=== PATIENT | male | born 1970 | race Caucasian/White ===

== ENCOUNTER 2016-12-21 11:38 | Emergency (ER) | payer SELFPAY ==
[~2016-12-21] VITALS: Ht 185.4 cm; Wt 101.2 kg
[~2016-12-21 11:38] MED LIST: DAYPRO600 M1 PO; LISINOPRIL5 MG PO; PRILOSEC20 MG PO; PROZAC10 MG PO
[2016-12-21] MEDS ORDERED: CEPHALEXIN500 M1 PO (12:30)
== END 2016-12-21 12:33 | disposition home or self-care (01) ==
LOC: ED 11:38
DX: S60.352A Superficial foreign body of left thumb, initial encounter (principal); Z79.899 Other long term (current) drug therapy; X58.XXXA Exposure to other specified factors, initial encounter; Y93.9 Activity, unspecified; Y92.9 Unspecified place or not applicable; Y99.9 Unspecified external cause status

== ENCOUNTER → 2020-05-31 | Outpatient (CLI) | payer BC ==
[~2020-05-31] MED LIST changes: +CEPHALEXIN500 M1 PO
== END | disposition home or self-care (01) ==
LOC: COVID19 14:49
PROVIDERS: ATTEND Internal Medicine
DX: Z20.828 Contact with and (suspected) exposure to other viral communicable diseases (principal)

== ENCOUNTER 2025-02-14 07:39 | Emergency (ER) | payer BC ==
[~2025-02-14] VITALS: Ht 185.4 cm; Wt 104.3 kg
[2025-02-14] MEDS ORDERED: Ondansetron Hydrochloride 4 MG/2 ML VIAL IV ONE (07:55)
[2025-02-14] MEDS ORDERED: SODIUM CHLORIDE 0.9% 1,000 ML IV ONE (07:55)
[2025-02-14 08:12] LABS: BASO # 0.1 10*3/uL (0.0-0.1); BASO % 0.9 % (0.0-1.0); EOS # 0.2 10*3/uL (0.0-0.4); EOS % 2.6 % (1.0-4.0); MEAN CELL VOLUME 95.8 fl (80.0-94.0); MEAN CORPUSCULAR HGB 31.3 pg (27.0-31.0); MEAN PLATELET VOLUME 9.5 fl (9.6-12.3); MONO # 0.6 10*3/uL (0.1-1.0); MONO % 6.3 % (3.0-9.0); NEUT # 6.3 10*3/uL (2.3-7.9); NEUT % 72.2 % (47.0-73.0); NUCLEATED RED BLOOD CELL 0.0 % (0.0-0.0); NUCLEATED RED BLOOD CELL 0.0 10*3/uL (0.0-0.0); PLATELET COUNT AUTOMATED 360 10*3/uL (130-400); RED CELL DISTRI WIDTH 12.7 % (0-14.5)
[2025-02-14 08:31] LABS: BUN 11 mg/dl (9-23)
[2025-02-14 09:30] LABS: BILIRUBIN Negative (Negative); BLOOD Negative (Negative); CLARITY Clear (Clear); COLOR Yellow (Yellow); KETONE Negative (Negative); LEUKO ESTERASE Negative (Negative); NITRITE Negative (Negative); PH 7.0 (4.5-8.0); SPECIFIC GRAVITY 1.015 (1.001-1.030); UROBILINOGEN 0.2 E.U./dl (0.0-1.0)
[2025-02-14] MEDS ORDERED: CIPRO500 MG PO (09:51)
[2025-02-14] MEDS ORDERED: Ondansetron4 MG PO (09:51)
[2025-02-14] MEDS ORDERED: DICYCLOMINE HYD20 MG PO (09:51)
[2025-02-14 10:19] LABS: BACTERIA 1+; EPITHELIAL CELLS 0-2
== END 2025-02-14 10:08 | disposition home or self-care (01) ==
LOC: ED 07:39
PROVIDERS: Emergency Medicine
DX: R11.2 Nausea with vomiting, unspecified (principal); R10.30 Lower abdominal pain, unspecified; I10 Essential (primary) hypertension; F32.A Depression, unspecified; F41.9 Anxiety disorder, unspecified; Z79.899 Other long term (current) drug therapy; Z88.8 Allergy status to other drugs, medicaments and biological substances; Z98.890 Other specified postprocedural states

== ENCOUNTER 2025-04-01 13:36 | Emergency (ER) | payer BC ==
[~2025-04-01] VITALS: Ht 187.9 cm; Wt 106.6 kg
[~2025-04-01 13:36] MED LIST changes: +CIPRO500 MG PO; +DICYCLOMINE HYD20 MG PO; +Ondansetron4 MG PO
[2025-04-01] MEDS ORDERED: IBU600 M1 PO (15:42)
[2025-04-01] MEDS ORDERED: IBUPROFEN 600 MG TAB PO ONE (15:45)
== END 2025-04-01 16:08 | disposition home or self-care (01) ==
LOC: ED 13:36
DX: S53.491A Other sprain of right elbow, initial encounter (principal); Z79.899 Other long term (current) drug therapy; Z98.890 Other specified postprocedural states; W18.39XA Other fall on same level, initial encounter; Y93.89 Activity, other specified; Y92.89 Other specified places as the place of occurrence of the external cause; Y99.8 Other external cause status